=== PATIENT | female | born 1995 ===

== ENCOUNTER 2017-11-08 20:57 | Emergency (ER) | payer OTHER ==
[2017-11-08 21:05] VITALS: BP 130/77; PULSE 96; RESP 16; TEMP 98.8; O2SAT 99
[2017-11-08] MEDS ORDERED: Sodium Chloride 0.9% 1,000 ML IV STA (21:35)
--- NOTE | 2017-11-08 21:42 | ED PDOC ---
HPI: Headache Time Seen by Provider: 11/08/17 21:12 Chief Complaint (Nursing): Dizziness/Lightheaded Chief Complaint (Provider): REYES History Per: Patient History/Exam Limitations: no limitations Additional Complaint(s): Pt reports frontal REYES, low back pain and chills X 1 day. Did not take medication for pain. Has similar sxs in past, relieved with Advil. Denies fever, neck stiffness, photophobia, visual changes, paresthesias, weakness. Past Medical History Reviewed: Nursing Documentation, Vital Signs Vital Signs: Last Vital Signs Temp 98.8 F 11/08/17 21:02 Pulse 96 H 11/08/17 21:02 Resp 16 11/08/17 21:02 BP 130/77 11/08/17 21:02 Pulse Ox 99 11/08/17 21:02 - Medical History PMH: Migraine - Family History Family History: States: Unknown Family Hx - Living Arrangements Living Arrangements: With Family - Social History Current smoker - smoking cessation education provided: No Alcohol: None - Immunization History Hx Tetanus Toxoid Vaccination: No Hx Influenza Vaccination: No Hx Pneumococcal Vaccination: No - Home Medications Home Medications: Ambulatory Orders Medication Instructions Recorded Naproxen 375 mg PO TIDPC #20 tablet 07/03/17 Ferrous Sulfate 325 mg PO BID #20 tablet 11/08/17 Naproxen [Naprosyn] 500 mg PO BID PRN #15 tablet 11/08/17 Nitrofurantoin Macrocrystals 100 mg PO BID #13 cap 11/08/17 [Macrobid] Ondansetron [Zofran Odt] 4 mg PO Q8H PRN #15 odt 11/08/17 - Allergies Allergies/Adverse Reactions: Allergies Allergy/AdvReac Type Severity Reaction Status Date / Time No Known Allergies Allergy Verified 04/10/14 15:27 Review of Systems ROS Statement: Except As Marked, All Systems Reviewed And Found Negative Constitutional: Positive for: Chills. Negative for: Fever Gastrointestinal: Negative for: Nausea, Vomiting, Abdominal Pain, Diarrhea Musculoskeletal: Positive for: Back Pain. Negative for: Neck Pain Skin: Negative for: Rash, Lesions Neurological: Positive for: Headache, Dizziness. Negative for: Weakness, Numbness, Incoordination, Change in Speech, Confusion, Seizures Physical Exam - Reviewed Nursing Documentation Reviewed: Yes Vital Signs Reviewed: Yes - Physical Exam Appears: Positive for: Well, No Acute Distress Head Exam: Positive for: ATRAUMATIC, NORMAL INSPECTION Skin: Positive for: Warm, Dry, Pallor. Negative for: Normal Color Eye Exam: Positive for: EOMI, PERRL, Other (Pale conjunctivae). Negative for: Normal appearance Neck: Positive for: Normal, Painless ROM, Supple Cardiovascular/Chest: Positive for: Regular Rate, Rhythm Respiratory: Positive for: Normal Breath Sounds. 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 Negative for: Motor/Sensory Deficits, Aphasia, Facial Droop - Laboratory Results Result Diagrams: 11/08/17 21:48 11/08/17 21:48 - ECG O2 Sat by Pulse Oximetry: 99 Medical Decision Making Medical Decision Makin yo female with REYES and low back pain. - labs - CT head - [facility] Accession No. : [id number] Patient Name / ID : DUSTIN FARLEY / [id number] Exam Date : 11/08/2017 22:44:24 ( Approved ) Study Comment : Sex / Age : F / 22Y Creator : Donna Valerio V. Dictator : Donna Valerio V. Hand Bander : Equine Manager : Donna Valerio V. Approver2 : Report Date : 11/09/2017 09:06:20 My Comment : Date of service: 11/08/2017 PROCEDURE: CT HEAD WITHOUT CONTRAST. HISTORY: REYES COMPARISON: None available. TECHNIQUE: Axial computed tomography images were obtained through the head/brain without intravenous contrast. Radiation dose: Total exam DLP = 790 mGy-cm. This CT exam was performed using one or more of the following dose reduction techniques: Automated exposure control, adjustment of the mA and/or kV according to patient size, and/or use of iterative reconstruction technique. FINDINGS: HEMORRHAGE: No intracranial hemorrhage. BRAIN: No mass effect or edema. No atrophy or chronic microvascular ischemic changes. VENTRICLES: Unremarkable. No hydrocephalus. CALVARIUM: Unremarkable. PARANASAL SINUSES: Unremarkable as visualized. No significant inflammatory changes. MASTOID AIR CELLS: Unremarkable as visualized. No inflammatory changes. OTHER FINDINGS: None. IMPRESSION: Normal CT of the Head. Concordant results (preliminary interpretation) provided by [facility]. Disposition - Clinical Impression Clinical Impression: Headache, UTI (urinary tract infection), Chronic anemia - Disposition Referrals: formerly [facility] [Outside] Disposition: Routine/Home Disposition Time: 23:40 Condition: STABLE Prescriptions: Ferrous Sulfate 325 mg PO BID #20 tablet Naproxen [Naprosyn] 500 mg PO BID PRN #15 tablet PRN Reason: Pain, Moderate (4-7) Nitrofurantoin Macrocrystals [Macrobid] 100 mg PO BID #13 cap Ondansetron [Zofran Odt] 4 mg PO Q8H PRN #15 odt PRN Reason: Nausea/Vomiting Instructions: Urinary Tract Infections in Adults, Headache, Adult Forms: [employer] (Russian) Print Language: MAURITANIAN
[2017-11-08 22:03] LABS: BASO # 0.1 K/uL (0.0-0.2); BASO % 0.9 % (0.0-2.0); EOS # 0.2 K/uL (0.0-0.7); EOS % 2.3 % (0.0-4.0); HEMOGLOBIN 9.9 g/dL (12.0-16.0); LYMPH # 2.5 K/uL (1.0-4.3); LYMPH % 24.8 % (20.0-40.0); MEAN CELL VOLUME 63.1 fl (81.0-99.0); MEAN CORPUSCULAR HGB CONC 30.1 g/dL (33.0-37.0); MEAN PLATELET VOLUME 9.3 fl (7.2-11.7); MONO # 0.7 K/uL (0.0-0.8); MONO % 6.7 % (0.0-10.0); NEUT # 6.5 K/uL (1.8-7.0); NEUT % 65.3 % (50.0-75.0); RBC 5.19 Mil/uL (3.80-5.20); RED CELL DISTRIBUTION WIDTH 19.9 % (11.5-14.5); WHITE BLOOD COUNT 9.9 K/uL (4.8-10.8)
[2017-11-08 22:25] LABS: BLOOD UREA NITROGEN 9 mg/dl (7-17); CALCIUM 9.2 mg/dL (8.4-10.2); GFR NON-AFRICAN AMERICAN > 60
[2017-11-08 22:32] LABS: ALB/GLOB RATIO 1.1 (1.0-2.1); ALBUMIN 4.2 g/dL (3.5-5.0); ALT/SGPT 20 U/L (9-52); AST/SGOT 40 U/L (14-36)
--- NOTE | 2017-11-09 09:07 | CT ---
Date of service: 11/08/2017 PROCEDURE: CT HEAD WITHOUT CONTRAST. HISTORY: REYES COMPARISON: None available. TECHNIQUE: Axial computed tomography images were obtained through the head/brain without intravenous contrast. Radiation dose: Total exam DLP = 790 mGy-cm. This CT exam was performed using one or more of the following dose reduction techniques: Automated exposure control, adjustment of the mA and/or kV according to patient size, and/or use of iterative reconstruction technique. FINDINGS: HEMORRHAGE: No intracranial hemorrhage. BRAIN: No mass effect or edema. No atrophy or chronic microvascular ischemic changes. VENTRICLES: Unremarkable. No hydrocephalus. CALVARIUM: Unremarkable. PARANASAL SINUSES: Unremarkable as visualized. No significant inflammatory changes. MASTOID AIR CELLS: Unremarkable as visualized. No inflammatory changes. OTHER FINDINGS: None. IMPRESSION: Normal CT of the Head. Concordant results (preliminary interpretation) provided by [facility].
== END 2017-11-09 01:30 | disposition home or self-care (01) ==
LOC: H.ER 20:57
DX: R51 Headache (principal); N39.0 Urinary tract infection, site not specified; D64.9 Anemia, unspecified
CPT/HCPCS: 70450; 80053; 81025; 85025; 86850; 86900; 96360; 96374; 99282; J1885; J7030

== ENCOUNTER 2017-12-07 16:26 | Emergency (ER) | payer OTHER ==
--- NOTE | 2017-12-07 17:01 | ED PDOC ---
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 Patient notes the onset was gradual at work this morning. She was seen in this ED one month ago for a headache, and admits this one is consistent with the last. Otherwise denies head injury, fever, abdominal pain, hematemesis, and chest pain. PMD: none provided Past Medical History Reviewed: Historical Data, Nursing Documentation, Vital Signs Vital Signs: Last Vital Signs Temp 97.9 F 12/07/17 16:31 Pulse 74 12/07/17 16:31 Resp 16 12/07/17 16:31 BP 95/66 L 12/07/17 16:31 Pulse Ox 98 12/07/17 16:31 - Medical History PMH: Migraine - Surgical History Surgical History: No Surg Hx - Family History Family History: States: Unknown Family Hx - Immunization History Hx Tetanus Toxoid Vaccination: No Hx Influenza Vaccination: No Hx Pneumococcal Vaccination: No - Home Medications Home Medications: Ambulatory Orders Medication Instructions Recorded Naproxen 375 mg PO TIDPC #20 tablet 07/03/17 Ferrous Sulfate 325 mg PO BID #20 tablet 11/08/17 Naproxen [Naprosyn] 500 mg PO BID PRN #15 tablet 11/08/17 Nitrofurantoin Macrocrystals 100 mg PO BID #13 cap 11/08/17 [Macrobid] Ondansetron [Zofran Odt] 4 mg PO Q8H PRN #15 odt 11/08/17 Metoclopramide [Reglan] 10 mg PO TID PRN #15 tab 12/07/17 - Allergies Allergies/Adverse Reactions: Allergies Allergy/AdvReac Type Severity Reaction Status Date / Time No Known Allergies Allergy Verified 12/07/17 16:30 Review of Systems ROS Statement: Except As Marked, All Systems Reviewed And Found Negative Constitutional: Negative for: Fever Eyes: Positive for: Other (light sensitivity) ENT: Positive for: Other (sound sensitivity) Cardiovascular: Negative for: Chest Pain Gastrointestinal: Positive for: Nausea, Vomiting. Negative for: Abdominal Pain, Hematemesis Neurological: Positive for: Headache Physical Exam - Reviewed Nursing Documentation Reviewed: Yes Vital Signs Reviewed: Yes - Physical Exam Appears: Positive for: No Acute Distress Head Exam: Positive for: ATRAUMATIC, NORMOCEPHALIC Skin: Positive for: Normal Color. Negative for: Rash Eye Exam: Positive for: Normal appearance (but sensitive to light) ENT: Positive for: Normal ENT Inspection Neck: Positive for: Normal, Painless ROM, Supple Cardiovascular/Chest: Positive for: Regular Rate, Rhythm Respiratory: Positive for: Normal Breath Sounds. Negative for: Respiratory Distress Gastrointestinal/Abdominal: Positive for: Normal Exam, Soft. Negative for: Tenderness Extremity: Positive for: Normal ROM Neurologic/Psych: Positive for: Alert, Oriented (x3) - Laboratory Results Result Diagrams: 12/07/17 18:40 12/07/17 20:00 - ECG O2 Sat by Pulse Oximetry: 98 (RA) Pulse Ox Interpretation: Normal Medical Decision Making Medical Decision Making: Time: 1648 Initial Impression: headache Initial Plan: --CMP --CBC with differential --Benadryl 50mg IVP --Normal saline IV --Reglan 10mg IVP --Reevaluation 2030 On reevaluation, patient reports complete relief of her headache. She is stable at this time to be discharged with a steady gait. Scribe Attestation: Documented by Samantha Quinones, acting as a scribe for Radames Davila PA-C. Provider Scribe Attestation: All medical record entries made by the Scribe were at my direction and personally dictated by me. I have reviewed the chart and agree that the record accurately reflects my personal performance of the history, physical exam, medical decision making, and the department course for this patient. I have also personally directed, reviewed, and agree with the discharge instructions and disposition. Disposition - Clinical Impression Clinical Impression: Headache - Patient ED Disposition Is Patient to be Admitted: No - Disposition Referrals: [facility] [Outside] [facility] [Outside] Jeison Morales MD [Medical Doctor] - Disposition: Routine/Home Disposition Time: 20:37 Condition: IMPROVED Additional Instructions: MIGUELITO BOSE, thank you for letting us take care of you today. Your provider was Paz Chance MD and you were treated for HEADACHE. The emergency medical care you received today was directed at your acute symptoms. If you were prescribed any medication, please fill it and take as directed. It may take several days for your symptoms to resolve. Return to the Emergency Department if your symptoms worsen, do not improve, or if you have any other problems. Please contact your doctor or call one of the physicians/clinics you have been referred to that are listed on the Patient Visit Information form that is included in your discharge packet. Bring any paperwork you were given at discharge with you along with any medications you are taking to your follow up visit. Our treatment cannot replace ongoing medical care by a primary care provider outside of the emergency department. Thank you for allowing the [facility] team to be part of your care today. If you had an X-Ray or CT scan: A Radiologist will review the ED reading if any change in treatment is needed we will contact you. If you had a blood, urine, or wound culture: It will take several days for the results, if any change in treatment is needed we will contact you. If you had an STI test: It will take 48 hours for the results. Please call after 1 week if you have not heard back. Prescriptions: Metoclopramide [Reglan] 10 mg PO TID PRN #15 tab PRN Reason: headache or nausea Instructions: Headache, Adult (DC) Forms: [employer] ([place] Korean) Print Language: MONEGASQUE
[2017-12-07] MEDS ORDERED: DiphenhydrAMINE 50 mg/ml Inj ONE (17:09)
[2017-12-07] MEDS: Sodium Chloride 0.9% 1,000 ML IV STA (17:15)
[2017-12-07] MEDS: DiphenhydrAMINE 50 mg/ml Inj IVP STA (17:15)
[2017-12-07 18:54] LABS: BASO # 0.1 K/uL (0.0-0.2); BASO % 1.3 % (0.0-2.0); EOS # 0.2 K/uL (0.0-0.7); EOS % 3.3 % (0.0-4.0); HEMOGLOBIN 10.7 g/dL (12.0-16.0); LYMPH # 2.3 K/uL (1.0-4.3); LYMPH % 31.1 % (20.0-40.0); MEAN CELL VOLUME 66.3 fl (81.0-99.0); MEAN CORPUSCULAR HEMOGLOBIN 19.7 pg (27.0-31.0); MEAN CORPUSCULAR HGB CONC 29.7 g/dL (33.0-37.0); MEAN PLATELET VOLUME 9.7 fl (7.2-11.7); MONO # 0.8 K/uL (0.0-0.8); MONO % 10.2 % (0.0-10.0); NEUT % 54.1 % (50.0-75.0); NRBC % 0.1 % (0.0-0.0); RBC 5.44 Mil/uL (3.80-5.20); RED CELL DISTRIBUTION WIDTH 22.1 % (11.5-14.5); WHITE BLOOD COUNT 7.5 K/uL (4.8-10.8)
[2017-12-07 20:28] LABS: ALB/GLOB RATIO 1.1 (1.0-2.1); ALBUMIN 3.9 g/dL (3.5-5.0); ALT/SGPT 75 U/L (9-52); AST/SGOT 32 U/L (14-36); BLOOD UREA NITROGEN 9 mg/dl (7-17); CALCIUM 8.8 mg/dL (8.4-10.2); GFR NON-AFRICAN AMERICAN > 60
[2017-12-07 20:43] VITALS: BP 106/63; PULSE 71; RESP 17; TEMP 98.2; O2SAT 100
== END 2017-12-07 20:43 | disposition home or self-care (01) ==
LOC: H.ER 16:26
DX: R51 Headache (principal)
CPT/HCPCS: 80053; 85025; 96374; 96375; 99285; J1200; J2765; J7030